=== PATIENT | female | born 1940 | race Caucasian/White ===

== ENCOUNTER → 2018-07-05 | Outpatient (CLI) | payer OTHER ==
[~2018-07-05] MED LIST: METFORMIN HCL500 MG; METOPROLOL SUC100 MG; ZANTAC300 MG
== END | disposition home or self-care (01) ==
LOC: NUCLEAR 08:55
DX: E11.51 Type 2 diabetes mellitus with diabetic peripheral angiopathy without gangrene (principal); I87.2 Venous insufficiency (chronic) (peripheral)

== ENCOUNTER → 2018-07-06 | Outpatient (CLI) | payer OTHER | END | disposition home or self-care (01) | LOC: NUCLEAR 09:00 | DX: E11.51 Type 2 diabetes mellitus with diabetic peripheral angiopathy without gangrene (principal); I73.9 Peripheral vascular disease, unspecified ==

== ENCOUNTER 2018-07-14 08:17 | Outpatient (CLI) | payer OTHER | END 2018-07-14 08:27 | disposition home or self-care (01) | LOC: TOM 08:17 | DX: K92.1 Melena (principal); K56.600 Partial intestinal obstruction, unspecified as to cause; K56.50 Intestinal adhesions [bands], unspecified as to partial versus complete obstruction ==

== ENCOUNTER 2019-11-28 13:27 | Outpatient (CLI) | payer OTHER | END 2019-11-28 19:23 | disposition home or self-care (01) | LOC: OFIC 805 13:27 | PROVIDERS: ATTEND Otolaryngology | DX: R42 Dizziness and giddiness (principal); H61.23 Impacted cerumen, bilateral; H90.3 Sensorineural hearing loss, bilateral ==

== ENCOUNTER 2020-01-21 08:08 | Outpatient (CLI) | payer OTHER | END 2020-01-21 13:53 | disposition home or self-care (01) | LOC: OFIC 805 08:08 | PROVIDERS: ATTEND Otolaryngology | DX: R42 Dizziness and giddiness (principal) ==